=== PATIENT | female | born 1965 | race Caucasian/White ===

== ENCOUNTER → 2017-04-24 | Outpatient (CLI) | payer OTHER | LOC: FIMAGING 09:02 | PROVIDERS: ATTEND Internal Medicine | DX: Z12.31 Encounter for screening mammogram for malignant neoplasm of breast (principal) | CPT/HCPCS: G0202 ==

== ENCOUNTER → 2018-10-03 | Outpatient (CLI) | payer OTHER | LOC: BMCIMAGING 08:11 | PROVIDERS: ATTEND Internal Medicine | DX: Z12.31 Encounter for screening mammogram for malignant neoplasm of breast (principal) ==

== ENCOUNTER → 2018-11-27 | Outpatient (CLI) | payer OTHER | LOC: BMCIMAGING 10-21 10:12 | PROVIDERS: ATTEND Internal Medicine | DX: R92.8 Other abnormal and inconclusive findings on diagnostic imaging of breast (principal) ==

== ENCOUNTER 2019-04-09 19:34 | Emergency (ER) | payer OTHER ==
--- NOTE | 2019-04-09 19:45 | EDPHY ---
H & P Time Seen by Provider: 04/09/19 19:45 Constitutional: Initial Vital Signs Temperature (C) 36.4 C 04/09/19 19:35 Heart Rate 75 04/09/19 19:35 Respiratory Rate 18 04/09/19 19:35 Blood Pressure 116/75 04/09/19 19:35 O2 Sat (%) 93 04/09/19 19:35 O2 Delivery Mode Room Air Allergies/Adverse Reactions: Milk Containing Products [dairy] Allergy (Verified 04/09/19 19:49) wheat Allergy (Verified 04/09/19 19:49) Home Medications: Medication Instructions Recorded Albuterol [Proventil Inhaler] 1 - 2 puffs IH Q4 #1 mdi 04/09/19 EPINEPHrine [Epipen 0.3 MG] 0.3 mg IM ONCE #2 syr 04/09/19 Famotidine [Pepcid 20 MG (OTC)] 20 mg PO DAILY #10 tab 04/09/19 Synthroid 04/09/19 predniSONE 40 mg PO DAILY #10 tab 04/09/19 Medical Decision Making ED Course/Re-evaluation: CHIEF COMPLAINT: Shortness of breath, allergic reaction HISTORY OF PRESENT ILLNESS: The patient is a 54 y/o female complaining of shortness of breath secondary to an allergic reaction today. The patient was hiking in [place] when she walked through a skunk smell. She then rubbed her eyes and since developed itching and shortness of breath. She took two tabs of Yue, which did not alleviate her symptoms. As he symptoms have not improved, she decided to present to the emergency department. No fever, headache, body aches, lightheadedness, chest pain, heart palpitations, cough, abdominal pain, urinary or bowel complaints, numbness, paresthesias. REVIEW OF SYSTEMS: A comprehensive 10 system review of systems is otherwise negative aside from elements mentioned in the history of present illness and medical decision making. PHYSICAL EXAM: HR, BP, O2 Sat, RR. Temp noted General Appearance: Alert, well hydrated, appropriate, and non-toxic appearing. Head: Atraumatic without scalp tenderness or obvious injury Eyes: Erythema to eyes. Pupils equal, round, reactive to light and accommodation, EOMI, no trauma, no injection. Ears: Clear bilaterally, no perforation, normal landmarks Nose: Atraumatic, no rhinorrhea, clear. Throat: There is no erythema or exudates, no lesions, normal tonsils, mucus membranes moist. Neck: Supple, 2+ carotid upstroke, nontender, no lymphadenopathy. Respiratory: Bilateral wheezes with tight breathin. No retractions, no distress , and no accessory muscle use. Cardiovascular: Regular rate and rhythm, no murmurs, rubs, or gallops. Bilateral carotid, radial, dorsalis pedis, and posterior tibial pulses intact. Good capillary refill all extremities. Gastrointestinal: Abdomen is soft, nontender, non-distended, no masses, no rebound, no guarding, no peritoneal signs. Musculoskeletal: Normal active ROM of all extremities, atraumatic. Neurological: Alert, appropriate, and interactive. The patient has normal DTRs and non-focal cranial nerves, motor, sensory, and cerebellar exam. Skin: Scattered hives on patient's back. Good turgor, no nodules on palpation. Past medical history: Hypothyroid Past surgical history: Denies Family history: Denies Social history: at bedside, employed, lives in [place] DIAGNOSTICS/PROCEDURES/CRITICAL CARE TIME: Not indicated DIFFERENTIAL DIAGNOSIS: The differential diagnosis included but was not limited to angioedema, anaphylaxis, anaphylactoid reaction, urticarial reaction, and other infectious causes for skin rash. MEDICAL DECISION MAKING: The patient is a 54 y/o female presenting with shortness of breath secondary to an allergic reaction today while hiking. She is unsure what caused her symptoms. On exam her tongue and uvula okay. She does have bilateral wheezes with tight breathing. Patient is having an acute allergic reaction. 0.3mg IV Epinephrine, 125mg IV Solu-Medrol, 50mg IV Zantac, 50mg IV Benadryl, and DuoNeb administered. 2032: Reassessed patient, she is feeling better after medications. I have advised her to follow up with an wash mill operator and take Benadryl as well as an Epi Pen in case of emergency. I have also prescribed her Albuterol, Pepcid and Prednisone. Return precautions provided; patient is comfortable with this plan. - Data Points Medications Given: Discontinued Medications Albuterol/Ipratropium (Duoneb) 3 ml IH EDNOW ONE Stop: 04/09/19 19:52 Last Admin: 04/09/19 19:59 Dose: 3 ml Diphenhydramine HCl (Benadryl Injection) 50 mg IVP EDNOW ONE Stop: 04/09/19 19:52 Last Admin: 04/09/19 20:03 Dose: 50 mg Epinephrine HCl (Epinephrine) 0.3 mg IM EDNOW ONE Stop: 04/09/19 19:52 Last Admin: 04/09/19 19:56 Dose: 0.3 mg Methylprednisolone Sodium Succinate (Solu-Medrol) 125 mg IVP EDNOW ONE Stop: 04/09/19 19:52 Last Admin: 04/09/19 20:04 Dose: 125 mg Ranitidine HCl (Zantac) 50 mg IVP EDNOW ONE Stop: 04/09/19 19:52 Last Admin: 04/09/19 20:04 Dose: 50 mg Departure - Departure Disposition: Home, Routine, Self-Care Clinical Impression: Rash Allergic reaction Qualifiers: Encounter type: initial encounter Qualified Code(s): T78.40XA - Allergy, unspecified, initial encounter Condition: Good Instructions: Urticaria (ED), Allergies (ED), Allergy Testing (ED) Additional Instructions: 1. Follow-up with your primary doctor within 72 hours. 2. Use [id number] Benadryl as directed for itching. Return to the Emergency Department for shortness of breath, difficulty swallowing, difficulty breathing, worsening of rash, fever or other worsening of condition. 3. When symptoms have completely subsided, follow up with an wash mill operator soon as possible to determine the cause of the allergic reaction. 4. Use EpiPen in case of allergic emergency. Referrals: Anju Ferrera MD [Primary Care Provider] - As per Instructions Boubacar Villela MD [Medical Doctor] - As per Instructions Prescriptions: Albuterol [Proventil Inhaler] 1 - 2 puffs IH Q4 #1 mdi EPINEPHrine [Epipen 0.3 MG] 0.3 mg IM ONCE #2 syr Famotidine [Pepcid 20 MG (OTC)] 20 mg PO DAILY #10 tab predniSONE 40 mg PO DAILY #10 tab Report Scribed for: [place] Report Scribed by: Stella James Date of Report: 04/09/19 Time of Report: 19:47
[2019-04-09] MEDS ORDERED: IPRATROPIUM/ALBUTEROL 3 ML DEYVIAL IH ONE (19:51)
[2019-04-09] MEDS ORDERED: methylPREDNISolone SOD SUCC 125 MG/2 ML VIAL IVP ONE (19:51)
[2019-04-09] MEDS ORDERED: EPINEPHrine 1 MG/ML INJ IM ONE (19:51)
[2019-04-09] MEDS ORDERED: RANITIDINE 50 MG/2 ML VIAL IVP ONE (19:51)
[2019-04-09 20:47] VITALS: BP 108/76
[2019-04-09] MEDS ORDERED: EPINEPHrine KIT (USE FOR EPIPEN) 1 MG/ML IM ONE (21:18)
[2019-04-09] MEDS ORDERED: methylPREDNISolone SOD SUCC 125 MG/2 ML VIAL ONE (21:18)
[2019-04-09] MEDS ORDERED: RANITIDINE 50 MG/2 ML VIAL ONE (21:18)
[2019-04-09] MEDS ORDERED: SODIUM CL 0.9% 20 ML VIAL ONE (21:18)
== END 2019-04-09 20:47 | disposition home or self-care (01) ==
DX: T78.40XA Allergy, unspecified, initial encounter (principal); R21 Rash and other nonspecific skin eruption
CPT/HCPCS: 96374; J0171; J1200; J2780; J2930